=== PATIENT | female | born 1960 | race Caucasian/White ===

== ENCOUNTER → 2016-09-03 | Outpatient (CLI) | payer OTHER ==
[2016-09-03 15:47] LABS: MEAN CORPUSCULAR HEMOGLOBIN 31.5 PG (26.0-34.0); MEAN CORPUSCULAR HGB CONC 33.7 g/dL (31.0-37.0); MEAN CORPUSCULAR VOLUME 94 FL (80-100); MEAN PLATELET VOLUME 9.5 FL (6.0-9.5); PLATELET COUNT 228 10^3uL (150-450)
[2016-09-03 16:01] LABS: ALBUMIN 4.6 g/dL (3.4-5.0); ANION GAP 16.7 MEQ/L (3-15); MAGNESIUM* 1.9 mg/dL (1.6-2.3); PHOSPHORUS 4.8 mg/dL (2.4-4.9); TOTAL PROTEIN 7.8 g/dL (6.4-8.5)
[2016-09-03 16:42] LABS: BAND NEUTROPHILS % 1 % (0-6); EOSINOPHILS % 5 % (0-4); LYMPHOCYTES # 2.6 #; MONOCYTES # 0.6 #; MONOCYTES % 9 % (3-11); RBC MORPH NORMAL (NORMAL); SEGMENTED NEUTROPHILS % 50 % (51-67); TOTAL CELLS COUNTED 100
== END ==
LOC: LAB 15:25
PROVIDERS: ATTEND Internal Medicine Hematology & Oncology
DX: C18.2 Malignant neoplasm of ascending colon (principal)
CPT/HCPCS: 36415; 80053; 82378; 83615; 83735; 84100; 85007; 85027

== ENCOUNTER → 2016-11-19 | Outpatient (CLI) | payer OTHER ==
[2016-11-19 16:55] LABS: MEAN CORPUSCULAR HEMOGLOBIN 30.6 PG (26.0-34.0); MEAN CORPUSCULAR HGB CONC 32.7 g/dL (31.0-37.0); MEAN CORPUSCULAR VOLUME 93 FL (80-100); MEAN PLATELET VOLUME 10.1 FL (6.0-9.5); PLATELET COUNT 200 10^3uL (150-450); WHITE BLOOD COUNT 5.63 10^3uL (4.0-11.0)
[2016-11-19 17:30] LABS: ALBUMIN 4.6 g/dL (3.4-5.0); ANION GAP 18.8 MEQ/L (3-15); MAGNESIUM* 1.7 mg/dL (1.6-2.3); PHOSPHORUS 5.5 mg/dL (2.4-4.9); TOTAL PROTEIN 8.1 g/dL (6.4-8.5)
[2016-11-19 17:46] LABS: BAND NEUTROPHILS % 1 % (0-6); EOSINOPHILS % 5 % (0-4); LYMPHOCYTES # 2.6 #; MONOCYTES # 0.5 #; MONOCYTES % 9 % (3-11); RBC MORPH NORMAL (NORMAL); SEGMENTED NEUTROPHILS % 35 % (51-67); TOTAL CELLS COUNTED 100
== END ==
LOC: LAB 16:27
PROVIDERS: ATTEND Internal Medicine Hematology & Oncology
DX: C18.2 Malignant neoplasm of ascending colon (principal)
CPT/HCPCS: 36415; 80053; 82378; 83615; 83735; 84100; 85007; 85027

== ENCOUNTER → 2016-11-21 | Outpatient (CLI) | payer OTHER | LOC: RAD 09:05 | PROVIDERS: ATTEND Internal Medicine Hematology & Oncology | DX: C18.2 Malignant neoplasm of ascending colon (principal) | CPT/HCPCS: 71260; 74178; Q9967 ==

== ENCOUNTER → 2016-11-22 | Outpatient (REF) | payer OTHER | LOC: LAB 16:11 | PROVIDERS: ATTEND Family Medicine | DX: E11.9 Type 2 diabetes mellitus without complications (principal) | CPT/HCPCS: 83036 ==

== ENCOUNTER 2017-01-17 07:03 | Day surgery (SDC) | payer OTHER ==
[~2017-01-17] VITALS: Ht 160 cm; Wt 86.8 kg
[~2017-01-17 07:03] MED LIST: AML5T PO; ASPI-860 PO; ATOR20TA54 PO; FERR-74 PO; FURO40TA4 PO; GBPN600T PO; HYDR-3702 PO; LACTATED RINGERS 1,000 ML IV SCH; LSNP20T PO; METF850T2 PO; PANT40TA3 PO; POTA20TA15 PO; SODIUM CHLORIDE FLUSH 10 ML SYR IV SCH; SODIUM CHLORIDE FLUSH 3 ML SYR IV PRN; TRM50T PO
[2017-01-17 07:10] VITALS: BP 175/128
[2017-01-17] MEDS ORDERED: LIDOCAINE/EPINEPHRINE 1%-1:100,000 (XYLOCAINE) 20ML VIAL ONE (08:07)
[2017-01-17 08:19] VITALS: BP 134/75
[2017-01-17] MEDS ORDERED: ALFENTANIL 500 MCG/ML (ALFENTA) 5 ML AMP IV ONE (08:37)
[2017-01-17] MEDS ORDERED: MIDAZOLAM 2 MG/2 ML (VERSED) VIAL ONE (08:37)
[2017-01-17] MEDS ORDERED: PROPOFOL 40 ML IV ONE (09:03)
[2017-01-17] MEDS ORDERED: ONDANSETRON 2 MG/ML (Z0FRAN) 2 ML VIAL ONE (09:03)
[2017-01-17 09:34] VITALS: BP 143/88
[2017-01-17 09:57] VITALS: BP 135/85
--- NOTE | 2017-01-17 11:57 | OPERATIVE REPORT ---
DATE OF OPERATION: 01/17/2017 PRE-OPERATIVE DIAGNOSIS: 1. History of colon cancer. 2. Status post right hemicolectomy. 3. Indwelling PowerPort. POST-OPERATIVE DIAGNOSIS: 1. History of colon cancer. 2. Status post right hemicolectomy. 3. Indwelling PowerPort. OPERATIVE PROCEDURE: 1. Removal of left subclavian PowerPort. 2. Total colonoscopy SURGEON: Ronak Dove MD ANESTHESIA: Monitored anesthesia care FINDINGS: 1. The bowel prep was good. 2. No neoplasia, angiodysplasia, or inflammation was seen. 3. The anastomosis was intact with no evidence of persistent disease or recurrence. 4. There were diverticula in the sigmoid colon. INDICATION: The patient is a 56-year-old referred by Dr. Leonardo for removal of her PowerPort, and one year surveillance colonoscopy after being treatment for colon cancer last year with a laparoscopic right hemicolectomy. She presents today for this procedure. DESCRIPTION OF PROCEDURE: The patient was informed of the risks and benefits and agreed to proceed. She was taken to the operating room and placed supine on standard operating table. She was administered IV sedation. When properly sedated her left upper chest was prepped and draped in the standard sterile fashion. Then 1% lidocaine with epinephrine was injected in the skin at the scar from her PowerPort insertion. This incision was opened with the #15 blade scalpel measuring about 25 mm in length. Blunt and sharp dissection were used to identify the underlying catheter, which was drawn up into the incision and taken out of the subclavian vein without difficulty. There was no back bleeding. The capsule around the port was then incised with cautery and the Prolene sutures holding the port in place were divided and removed. The capsule was further dissected and the port was removed. Hemostasis was achieved within the wound bed with cautery and that was complete. The subcutaneous tissue was reapproximated with interrupted 3-0 Vicryl and the skin was closed with subcuticular 4-0 Monocryl. A dressing was applied. Attention was then turned to the colonoscopy. This was performed with the patient in the supine position. A digital rectal exam was performed, which was normal. The lighted endoscope was then passed into the rectum and advanced along the colon to the anastomosis. The small bowel was entered and appeared unremarkable at the anastomosis. The scope was slowly withdrawn through transverse, descending, and sigmoid colon. There were no polyps or neoplasia. There were scattered diverticula in the sigmoid region. The rectum appeared normal on regular view and retroflexion. The scope was removed completing the procedure. The patient tolerated the procedure without complications. I recommend surveillance colonoscopy in 3 years.
== END 2017-01-17 10:05 | disposition home or self-care (01) ==
LOC: ASC 07:03
PROVIDERS: ATTEND Surgery
DX: Z45.2 Encounter for adjustment and management of vascular access device (principal); K57.30 Diverticulosis of large intestine without perforation or abscess without bleeding; Z90.49 Acquired absence of other specified parts of digestive tract; Z85.038 Personal history of other malignant neoplasm of large intestine; Z92.21 Personal history of antineoplastic chemotherapy; E11.9 Type 2 diabetes mellitus without complications; I69.354 Hemiplegia and hemiparesis following cerebral infarction affecting left non-dominant side; E66.9 Obesity, unspecified; Z68.33 Body mass index [BMI] 33.0-33.9, adult; Z79.84 Long term (current) use of oral hypoglycemic drugs
CPT/HCPCS: 36415; 36590; 45378; 84132; J2250; J2405; J7120